=== PATIENT | female | born 1950 | race Caucasian/White ===

== ENCOUNTER 2021-08-03 05:17 | Day surgery (SDCO) | payer OTHER ==
[~2021-08-03] VITALS: Ht 167.6 cm; Wt 80.4 kg
[~2021-08-03 05:17] MED LIST: DUONEB 2.5-0.5M1 AMP NEB; NEBULIZER UNIT NEB; PREDNISONE 20MG20 MG PO; PROAIR HFA8.5 GM INH; TESSALON PERLE100 M1 PO
[2021-08-03 05:45] LABS: BASOPHIL 0.3 % (0-2); EOSINOPHIL 1.6 % (0-7); HCT 43.6 % (37.0-47.0); HGB 14.3 g/dl (12.5-16.0); LYMPHOCYTE 37.9 % (15-48); MCH 29.1 pg (25.0-31.0); MCHC 32.8 g/dL (32.0-36.0); MCV 88.8 fL (78.0-100.0); MPV 9.6 fL (6.0-9.5); NEUTROPHIL 50.1 % (41-80); NRBC 0; PLT 200 K/uL (150-400); RBC 4.91 M/uL (4.20-5.40); RDW 12.8 % (11.5-14.0); WBC 7.3 K/uL (4.0-10.5)
[2021-08-03 06:01] LABS: INR 1.02 (0.9-1.2); PROTHROMBIN TIME 12.8 SECONDS (11.8-13.4); PTT 30.7 SECONDS (24.4-34.7)
[2021-08-03 06:19] LABS: ALBUMIN 3.7 g/dL (3.4-5.0); BILIRUBIN - TOTAL 0.4 mg/dL (0.2-1.0); BUN/CREAT RATIO (CALC) 19.4 RATIO; CREATININE 0.67 mg/dL (0.51-0.95); GLOBULIN (CALCULATION) 3.5 g/dL; POTASSIUM 2.9 mmol/L (3.5-5.1); TOTAL PROTEIN 7.2 g/dL (6.4-8.2)
[2021-08-03 06:24] LABS: INFLUENZA A NAA NEGATIVE (NEGATIVE)
[2021-08-03 06:26] LABS: CORONAVIRUS 2019 SARS-COV-2 POSITIVE (NEGATIVE)
[2021-08-03] MEDS ORDERED: PRILOSEC20 MG PO (09:52)
[2021-08-03] MEDS ORDERED: ATORVASTATIN CA40 MG PO (09:52)
[2021-08-03] MEDS ORDERED: PEPCID AC20 MG PO (09:53)
[2021-08-04 06:39] LABS: BASOPHIL 0.2 % (0-2); EOSINOPHIL 0 % (0-7); HCT 37.5 % (37.0-47.0); HGB 12.2 g/dl (12.5-16.0); LYMPHOCYTE 26.5 % (15-48); MCH 29.2 pg (25.0-31.0); MCHC 32.5 g/dL (32.0-36.0); MCV 89.7 fL (78.0-100.0); MONOCYTE 12.6 % (0-12); NEUTROPHIL 60.5 % (41-80); NRBC 0; PLT 168 K/uL (150-400); RBC 4.18 M/uL (4.20-5.40); RDW 13.2 % (11.5-14.0); WBC 4.6 K/uL (4.0-10.5)
[2021-08-04 07:03] LABS: BUN/CREAT RATIO (CALC) 22.4 RATIO; CREATININE 0.58 mg/dL (0.51-0.95); POTASSIUM 3.8 mmol/L (3.5-5.1)
[2021-08-04] MEDS ORDERED: VENTOLIN HFA IN18 GM INH (10:45)
[2021-08-04] MEDS ORDERED: VENTOLIN (2.5 MG/3 M INH (10:45)
[2021-08-04] MEDS ORDERED: DECADRON6 MG PO (10:45)
== END 2021-08-04 13:20 | disposition home or self-care (01) ==
LOC: FER 05:17 → FMS 07:58
PROVIDERS: Internal Medicine; ADMIT Internal Medicine
DX: J96.01 Acute respiratory failure with hypoxia (principal); U07.1 COVID-19; J42 Unspecified chronic bronchitis; E87.6 Hypokalemia; K21.9 Gastro-esophageal reflux disease without esophagitis; E78.5 Hyperlipidemia, unspecified; Z88.0 Allergy status to penicillin; Z88.6 Allergy status to analgesic agent; Z88.2 Allergy status to sulfonamides; Z88.5 Allergy status to narcotic agent; Z79.899 Other long term (current) drug therapy
CPT/HCPCS: 36415; 36600; 71045; 80048; 80053; 82803; 83605; 83735; 83880; 84145; 84484; 85025; 85610; 85730; 93005; 94640; 94760; 94762; C9399; G0378; J1100; J3475; J7030; J7050; J8540; U0002